=== PATIENT | female | born 1975 | race Caucasian/White ===

== ENCOUNTER 2017-07-05 15:18 | Emergency (ER) | END 2017-07-05 17:59 | disposition home or self-care (01) ==

== ENCOUNTER 2017-08-06 14:18 | Emergency (ER) | END 2017-08-06 14:54 | disposition left against medical advice (07) ==

== ENCOUNTER 2017-08-10 14:36 | Emergency (ER) | END 2017-08-10 14:47 | disposition left against medical advice (07) ==

== ENCOUNTER 2017-08-10 15:11 | Emergency (ER) | END 2017-08-10 17:01 | disposition home or self-care (01) ==

== ENCOUNTER 2018-01-02 09:12 | Emergency (ER) | END 2018-01-02 11:35 | disposition home or self-care (01) ==

== ENCOUNTER 2018-08-24 12:39 | Emergency (ER) | payer MEDICAID ==
[~2018-08-24] VITALS: Ht 152.4 cm; Wt 54.2 kg
[~2018-08-24 12:39] MED LIST: CEPH-443 PO; FAMO-96 PO; FAMO20TA18 PO; FER325 PO; PANT40TA3 PO; TRAM50TA2 PO
[2018-08-24 12:48] VITALS: BP 110/64; PULSE 83; RESP 19; Ht 152.4 cm; Wt 54.2 kg
[2018-08-24] MEDS ORDERED: LIDOCAINE/MYLANTA 40 ML BTL PO ONE (14:30)
--- NOTE | 2018-08-24 15:04 | ERD ---
ER Documentation Chief Complaint Chief Complaint EPIGASTRIC PAIN, NAUSEA, VOMITTING X 1 WEEK HPI Patient is a 43-year-old female, no past medical history, presents to the ER for concerns of epigastric pain, nausea and vomiting. Patient states that the pain in her epigastric region for the last week. Patient states she last vomited yesterday, and 2 episodes of nonbloody, nonbilious vomiting. Patient does admit to eating fried and fatty foods. She describes a burning sensation in the epigastric region. She denies any fevers, chills, chest pain, shortness of breath, lower abdominal pain or diarrhea. Patient denies any urinary symptoms. No recent surgeries. No recent travel. ROS All systems reviewed and are negative except as per history of present illness. Medications Home Meds Active Scripts Ferrous Sulfate* (Ferrous Sulfate*) 325 Mg Tabec, 325 MG PO BID, #30 TAB Prov:KRISTI HANNON PA-C 08/24/18 Docusate Sodium* (Colace*) 100 Mg Capsule, 100 MG PO BID, #30 CAP Prov:KRISTI HANNON PA-C 08/24/18 Ondansetron (Ondansetron Odt) 4 Mg Tab.rapdis, 4 MG PO Q6H PRN for NAUSEA AND/OR VOMITING, #10 TAB Prov:KRISTI HANNON PA-C 08/24/18 Famotidine* (Pepcid*) 20 Mg Tablet, 20 MG PO BID for 30 Days, TAB Prov:KRISTI HANNON PA-C 08/24/18 Tramadol HCl (Tramadol HCl) 50 Mg Tablet, 50 MG PO Q4 PRN for PAIN, #20 TAB Prov:HAYDEE ENG 01/02/18 Famotidine* (Pepcid*) 20 Mg Tablet, 20 MG PO BID for 15 Days, TAB Prov:HAYDEE ENG 01/02/18 Tramadol HCl (Tramadol HCl) 50 Mg Tablet, 50 MG PO Q4 PRN for PAIN, #15 TAB Prov:WILBERT LOUIS MD 08/10/17 Ferrous Sulfate* (Ferrous Sulfate*) 325 Mg Tabec, 325 MG PO BID, #60 TAB Prov:WILBERT LOUIS MD 08/10/17 Pantoprazole* (Protonix*) 40 Mg Tablet.dr, 40 MG PO DAILY, #30 TAB Prov:WILBERT LOUIS MD 08/10/17 Famotidine* (Famotidine*) 20 Mg Tablet, 20 MG PO BID, #60 TAB Prov:HAYDEE ENG 07/05/17 Cephalexin* (Keflex*) 500 Mg Capsule, 500 MG PO BID for 7 Days, CAP Prov:HAYDEE ENG 07/05/17 Allergies Allergies: Coded Allergies: No Known Allergy (Unverified Allergy, Unknown, 04/26/06) PMhx/Soc Medical and Surgical Hx: pt denies Medical Hx, pt denies Surgical Hx Hx Alcohol Use: No Hx Substance Use: No Hx Tobacco Use: No Smoking Status: Never smoker FmHx Family History: No diabetes Physical Exam Vitals Vital Signs Date Temp Pulse Resp B/P (MAP) Pulse Ox O2 O2 Flow FiO2 Time Delivery Rate 08/24/18 98.5 83 19 110/64 100 12:48 (79) Physical Exam GENERAL: Well-developed, well-nourished female. Appears in no acute distress. Eating chips in exam room. HEAD: Normocephalic, atraumatic. EYES: Pupils are equally reactive bilaterally. EOMs grossly intact. No conjunctival erythema. ENT: Moist mucous membranes. No uvula deviation. No kissing tonsils. NECK: Supple. No meningismus. Normal range of motion of the neck. LUNG: Clear to auscultation bilaterally. No rhonchi, wheezing, rales or coarse breath sounds. HEART: Regular rate and rhythm. No murmurs, rubs or gallops. ABDOMEN: No scars, ecchymosis or rashes noted. Soft, and nondistended. Tender to palpation in the epigastric region. Positive bowel sounds in all four quadrants. No rebound tenderness, no guarding. (-) McBurney's point tenderness. No CVA tenderness. EXTREMITIES: Equal pulses bilaterally. No peripheral clubbing, cyanosis or edema. No unilateral leg swelling. NEUROLOGIC: Alert and oriented. Moving all four extremities without any difficulty. Normal speech. Steady gait. SKIN: Normal color. Warm and dry. No rashes or lesions. Result Diagram: 08/24/18 1600 08/24/18 1600 Results 24 hrs Laboratory Tests Test 08/24/18 14:15 08/24/18 14:53 08/24/18 16:00 Urine Color YELLOW Urine Clarity TURBID Urine pH 7.0 Urine Specific [place] 1.021 Urine Ketones NEGATIVE mg/dL Urine Nitrite NEGATIVE mg/dL Urine Bilirubin NEGATIVE mg/dL Urine Urobilinogen 2+ mg/dL Urine Leukocyte Esterase NEGATIVE Daniel/ul Urine Microscopic RBC 0 /HPF Urine Microscopic WBC 4 /HPF Urine Squamous Epithelial Cells FEW /HPF Urine Amorphous Crystals MODERATE /HPF Urine Bacteria FEW /HPF Urine Mucus FEW /HPF Urine Hemoglobin NEGATIVE mg/dL Urine Glucose NEGATIVE mg/dL Urine Total Protein NEGATIVE mg/dl POC Beta HCG, Qualitative NEGATIVE White Blood Count 8.4 10^3/ul Red Blood Count 3.74 10^6/ul Hemoglobin 9.6 g/dl Hematocrit 30.4 % Mean Corpuscular Volume 81.3 fl Mean Corpuscular Hemoglobin 25.7 pg Mean Corpuscular 31.6 g/dl Hemoglobin Concent Red Cell Distribution Width 17.3 % Platelet Count 309 10^3/UL Mean Platelet Volume 11.3 fl Immature Granulocytes % 0.400 % Neutrophils % 59.5 % Lymphocytes % 29.5 % Monocytes % 6.8 % Eosinophils % 3.2 % Basophils % 0.6 % Nucleated Red Blood Cells % 0.0 /100WBC Immature Granulocytes # 0.030 10^3/ul Neutrophils # 5.0 10^3/ul Lymphocytes # 2.5 10^3/ul Monocytes # 0.6 10^3/ul Eosinophils # 0.3 10^3/ul Basophils # 0.1 10^3/ul Nucleated Red Blood Cells # 0.0 10^3/ul Sodium Level 141 mmol/L Potassium Level 3.6 mmol/L Chloride Level 104 mmol/L Carbon Dioxide Level 29 mmol/L Anion Gap 8 Blood Urea Nitrogen 13 mg/dl Creatinine 0.76 mg/dl Est Glomerular Filtrat > 60 mL/min Rate mL/min Glucose Level 100 mg/dl Calcium Level 9.1 mg/dl Total Bilirubin 0.3 mg/dl Direct Bilirubin 0.00 mg/dl Indirect Bilirubin 0.3 mg/dl Aspartate Amino 18 IU/L Transf (AST/SGOT) Alanine 16 IU/L Aminotransferase (ALT/SGPT) Alkaline Phosphatase 62 IU/L Total Protein 7.1 g/dl Albumin 4.0 g/dl Globulin 3.10 g/dl Albumin/Globulin Ratio 1.29 Lipase 102 U/L Current Medications Medications Dose Sig/Adebayo Start Time Status Last (Trade) Ordered Route PRN Stop Time Admin Dose Reason Admin 40 ml ONCE ONCE 08/24/18 DC 08/24/18 Miscellaneous PO 14:30 14:38 Medication 08/24/18 14:31 (Gi Cocktail (2)) Procedures/MDM ED COURSE: The patient was stable throughout ED course. I kept the patient and/or family informed of laboratory and diagnostic imaging results throughout the ED course. EKG: Read by Dr. Boykin, attending physician. EKG shows normal sinus rhythm at a rate of 56 bpm No arrhythmias, acute ST elevations or T wave changes were noted. MEDICATIONS GIVEN: GI cocktail patient tolerated medication well with no adverse reactions. Patient reported improvement in pain. MEDICAL DECISION MAKING: This is a 43-year-old female presents the ER for concerns of epigastric pain along with nausea and vomiting x1 week. Vital signs were reviewed. Patient is afebrile. Work was obtained. CBC showed no evidence of systemic infection. Patient was noted to have anemia however no indication for emergent blood transfusion. Patient was given option for iron and Colace. CMP showed no evidence of electrolyte abnormalities, severe acidosis, alkalosis, renal failure, or liver disease. Lipase showed no evidence of acute pancreatitis. UA showed no evidence of acute infection or hematuria. Urine test was negative. EKG showed normal sinus rhythm. No ST elevations. Reviewed by ED attending Dr. Boykin. Patient did admit to eating fried and fatty foods. Patient was eating chips in the exam room. Upon reexamination, patient did report significant improvement in symptoms. Patient was advised on dietary changes. Patient was advised to avoid fatty, fried, acidic, spicy foods. Patient advised to avoid ibuprofen. At this time, the patient's presentation is most consistent with epigastric pain likely due to gastritis. Differential diagnosis included was not limited to acute coronary syndrome, AAA, mesenteric ischemia, lower lobe pneumonia, DKA, bowel perforation, cholecystitis, choledocholithiasis, ascending cholangitis, hepatic abscess, pancreatitis, splenic rupture, diverticulitis, UTI, pyelonephritis, nephrolithiasis, appendicitis, constipation, , ectopic , PID, ovarian torsion or tubo-ovarian abscess. She was nontoxic, [id number] prior to discharge. PRESCRIPTIONS: Pepcid, Zofran, iron supplements, Colace DISCHARGE: At this time, patient is stable for discharge and outpatient management. I have instructed the patient to follow-up with his/her primary care physician in 1-2 days. I have instructed the patient to promptly return to the ER at any time for any new or worsening symptoms including increased pain, nausea, vomiting, diarrhea, fever, weakness or LOC. The patient and/or family expressed understanding of and agreement with this plan. All questions were answered. Home care instructions were provided. Disclaimer: Inadvertent spelling and grammatical errors are likely due to EHR/dictation software use and do not reflect on the overall quality of patient care. Also, please note that the electronic time recorded on this note does not necessarily reflect the actual time of the patient encounter. Departure Diagnosis: Primary Impression: Epigastric abdominal pain Condition: Fair Patient Instructions: Gerd (Adult), Epigastric Pain (Uncertain Cause) Referrals: [facility] YOU HAVE RECEIVED A MEDICAL SCREENING EXAM AND THE RESULTS INDICATE THAT YOU DO NOT HAVE A CONDITION THAT REQUIRES URGENT TREATMENT IN THE EMERGENCY DEPARTMENT. FURTHER EVALUATION AND TREATMENT OF YOUR CONDITION CAN WAIT UNTIL YOU ARE SEEN IN YOUR DOCTORS OFFICE WITHIN THE NEXT 1-2 DAYS. IT IS YOUR RESPONSIBILITY TO MAKE AN APPOINTMENT FOR FOLOW-UP CARE. IF YOU HAVE A PRIMARY DOCTOR --you should call your primary doctor and schedule an appointment IF YOU DO NOT HAVE A PRIMARY DOCTOR YOU CAN CALL OUR PHYSICIAN REFERRAL HOTLINE AT IF YOU CAN NOT AFFORD TO SEE A PHYSICIAN YOU CAN CHOSE FROM THE FOLLOWING [facility] [address] [facility]. [facility] [place] [address] [facility] [address] [facility] [facility] [address] [facility] [facility] [address] [facility]. [facility]. [address] [facility]. [facility] YOU HAVE RECEIVED A MEDICAL SCREENING EXAM AND THE RESULTS INDICATE THAT YOU DO NOT HAVE A CONDITION THAT REQUIRES URGENT TREATMENT IN THE EMERGENCY DEPARTMENT. FURTHER EVALUATION AND TREATMENT OF YOUR CONDITION CAN WAIT UNTIL YOU ARE SEEN IN YOUR DOCTORS OFFICE WITHIN THE NEXT 1-2 DAYS. IT IS YOUR RESPONSIBILITY TO MAKE AN APPOINTMENT FOR FOLOW-UP CARE. IF YOU HAVE A PRIMARY DOCTOR --you should call your primary doctor and schedule and appointment IF YOU DO NOT HAVE A PRIMARY DOCTOR YOU CAN CALL OUR PHYSICIAN REFERRAL HOTLINE AT . IF YOU CAN NOT AFFORD TO SEE A PHYSICIAN YOU CAN CHOSE FROM THE FOLLOWING [facility] INSTITUTIONS: [facility] [address] [place] [address] [facility] [address] [place] [address] [facility] [address] [place] [address] Additional Instructions: Call your primary care doctor TOMORROW for an appointment during the next 1-2 days.See the doctor sooner or return here if your condition worsens before your appointment time. KRISTI HANNON PA-C Aug 24, 2018 15:04
[2018-08-24] MEDS ORDERED: FAMO-96 PO (16:37)
[2018-08-24] MEDS ORDERED: ONDA4TAB14 PO (16:38)
[2018-08-24] MEDS ORDERED: DOCU-144 PO (16:38)
[2018-08-24] MEDS ORDERED: FER325 PO (16:39)
== END 2018-08-24 16:42 | disposition home or self-care (01) ==
LOC: FTE 12:39
DX: R10.13 Epigastric pain (principal); R11.2 Nausea with vomiting, unspecified
CPT/HCPCS: 36415; 80053; 81001; 81025; 83690; 85025; 93005; Z7502; Z7610